=== PATIENT | male | born 1965 | race Two or more races ===

== ENCOUNTER 2024-12-05 09:21 | Emergency (ER) | payer MEDICAID, SELFPAY ==
[2024-12-05 09:45] VITALS: BP 144/89; PULSE 107; RESP 18; TEMP 37.4; O2SAT 98; BMI 21.2
--- NOTE | 2024-12-05 09:56 | EKG_ITS ---
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: : 1965 Requested By: Javier Bañuelos Order Number: [id number] Reading MD: Javier Bañuelos Measurements Intervals [place] Rate: 99 P: 61 MS: 162 QRS: -41 QRSD: 96 T: 73 QT: 340 QTc: 437 Interpretive Statements SINUS RHYTHM POSSIBLE LEFT ATRIAL ENLARGEMENT [-0.1mV P-WAVE IN V1/V2] LEFT AXIS DEVIATION [QRS AXIS < -30] POSSIBLE SEPTAL MYOCARDIAL INFARCTION , OF INDETERMINATE AGE [30 ms Q WAVE IN V1/V2] Compared to ECG 10/10/2019 16:35:24 Left-axis deviation now present Myocardial infarct finding now present ST (T wave) deviation no longer present /store/S0/[id number]/ecg/[id number].pdf
--- NOTE | 2024-12-05 09:56 | XR_ITS ---
Examination: PA chest single view FINDINGS: Upright PA chest single view Exam date and time: December 05, 2024 at 10:15 AM Comparison December 26, 2022 INDICATIONS: Shortness of breath coughing beginning 6 months ago FINDINGS: Stable scarring left upper lobe Normal heart size Stable scarring right midlung No interval pneumonia or pulmonary edema Prominent osteopenia IMPRESSION: No interval pneumonia or pulmonary edema
--- NOTE | 2024-12-05 10:04 | EDNOTE_ITS ---
ED General RME/HPI General Chief complaint: General Adult/Misc Complain Stated complaint: SWEATING BEHIND EARS AND NECK/VALLEY FEVER Arrival date/time: 12/05/24 09:21 RME / HPI RME / HPI narrative: This patient has past medical history of hypertension, polysubstance abuse, history of GERD, history of uncontrolled diabetes type 2 on insulin, history of valley fever, right BKA post right foot osteomyelitis with peripheral vascular disease was taking Plavix and clopidogrel follows with Dr. Fowler Presented to the ER with worsening fever, night sweats, chronic cough, difficulty/trouble breathing, epigastric pain associated with nausea x 3 days ago. Patient reported that he was diagnosed with valley fever 3 years ago and was taking fluconazole however his symptoms have not been improving and he has been having worsening sinus symptoms from last 3 days which brought him to the ER. He also reported that he had right below-knee amputation with prosthesis after he was admitted in the hospital in 2022 for right leg osteomyelitis due to uncontrolled type 2 diabetes. He reported to have fever spikes however did not record his temperature at home also has night sweats. He received COVID and flu vaccine in the past. He is also complaining of dysuria and burning sensation during urination. He also have chronic low back pain and takes gabapentin and celecoxib daily. He also have mild shortness of breath however saturating well. His blood sugars are usually around 280s?300s in the morning based on freestyle malathi 2 readings. He also has productive phlegm black in color. His chest hurts when he breathes faster reports to have trouble sleeping at night. He had 2 episodes of vomiting consisting of food particles without any blood. He is passing normal bowel movements. Patient was taking cilostazol and clopidogrel for peripheral occlusive vascular disease however is not taking that medications anymore. Vitals revealed blood pressure 144/89, pulse 107, respiratory rate 18. Temperature 99.4. He was saturating well on room air. EKG showed sinus rhythm with QTc 437. Left axis deviation. Peaked T waves in V3, V4 and V5. Left ventricular hypertrophy. No acute ST-T changes. ordered viscous lidocaine x 1, Pepcid x 1 and Tylenol x 1. Basic labs were ordered in addition to chest x-ray, ABGs, lactic acid, ESR and CRP along with blood cultures and sputum culture. Bedside COVID and flu antigen. PMH: As above PSH: Appendectomy, amputation of right leg post right leg osteomyelitis SH: Used to smoke tobacco quit smoking tobacco 20 years ago. Smokes marijuana occasionally. Denies drinking alcohol. Denies using recreational drugs. Allergies: NKDA Home medications: Insulin Lantus 15 units, regular insulin 5 units as needed, gabapentin 300 mg at night, celecoxib as needed for pain, pantoprazole 40 mg o nce daily, fluconazole 200 mg twice daily Vitals revealed blood pressure 144/89, pulse 107, respiratory rate 18. Temperature 99.4. He was saturating well on room air. EKG showed sinus rhythm with QTc 437. Left axis deviation. Peaked T waves in V3, V4 and V5. Left ventricular hypertrophy. No acute ST-T changes. ordered viscous lidocaine x 1, Pepcid x 1 and Tylenol x 1. Basic labs were ordered in addition to chest x-ray, ABGs, lactic acid, ESR and CRP along with blood cultures and sputum culture. Bedside COVID and flu antigen. 1310 although medications were ordered for the patient however patient eloped and did not receive any medications. Before, he left patient was explained regarding his condition and informed that he does not have infection currently and needs insulin therapy for his elevated blood sugars. He was contacted via phone call again and informed that if he wants to take medications he can always come back to the ER however he said that nobody is available to take him to the hospital and he already feels well therefore he was informed to check his blood sugars which were around 128 mg/dL as he gave himself insulin. He was advised to follow-up with his PCP and continue his medication as prescribed. DC instructions Your blood sugars are uncontrolled and you are recommended to follow-up with your PCP for better insulin regimen Continue taking your insulin as directed by your PCP Take Pepcid instead of Protonix due to WILLIAM and take Reglan as needed for nausea and vomiting Avoid taking NSAIDs including celecoxib as they affect your kidney functions Continue taking gabapentin for your neuropathy pain Infection was ruled out as you were not found to have any pneumonia on chest x- ray In case of emergency, call 911 or come back to the ED Advised to follow-up with your PCP as outpatient within a week complaint: Fever, cough with phlegm, trouble breathing, night sweats Onset (ago): week(s) (1) Location: chest and abdomen Radiation: abdomen Severity: moderate Severity scale (1-10): 9 Quality: aching and constant Consistency: constant Relieving factors: medication (Celecoxib and gabapentin) Exacerbating factors: none Associated symptoms: chest pain, cough, fever/chills, headaches, loss of appetite, nausea/vomiting, shortness of breath and weakness Related Data Previous Rx's ?Medication ?Instructions ?Recorded insulin lispro 100 unit/mL 1 sliding scale dose subcut 12/27/22 subcutaneous half-unit pen USEASDIRECTD #5 mL (Humalog Jose Raul KwikPen (U-100)) cilostazol 100 mg tablet 100 mg PO BID #60 tabs 04/29 clopidogrel 75 mg tablet (Plavix) 75 mg PO QDAY #30 ta bs 04/29/23 doxycycline monohydrate 100 mg 100 mg PO BID #70 tabs 04/29/23 tablet insulin glargine 100 unit/mL (3 20 unit (0.2 mL) subcu t QAM #15 mL 04/29/23 mL) subcutaneous pen (Basaglar KwikPen U-100 Insulin) lisinopril 10 mg tablet 10 mg PO QDAY #30 tabs 04/29 sennosides 8.6 mg tablet (senna) 8.6 mg PO QDAY PRN co nstipation 04/29/23 #30 tabs famotidine 20 mg tablet (Pepcid) 20 mg PO QDAY #60 tab s 12/05/24 metoclopramide HCl 5 mg tablet 5 mg PO QDAY PRN nausea and 12/05/24 (Reglan) vomiting #30 tabs Allergies Allergy/AdvReac Type Severity Reaction Status Date / Time No Known Allergies Allergy Verified 12/05/24 09:27 Review of Systems Review of Systems Systems Reviewed: All systems reviewed, normal except as documented Past Medical History Past Medical History NEUROLOGIC: Negative Neurological Disorders or Seizures CARDIAC: Positive Cardiac Disorders and Angina; Negative Congestive Heart Failure RESPIRATORY: Negative Chronic Obstructive Pulmonary Disease (COPD) or Asthma GASTROINTESTINAL: Positive Gastrointestinal Disorders and Gastroesophageal Reflux Disease GENITOURINARY: Positive Renal Disease MUSCULOSKELETAL: Negative Musculoskeletal Disorders ENT: Positive Ear Infection ENDOCRINE: Positive Endocrine Disorders and Diabetes Mellitus Type 1; Negative Diabetes Mellitus Type 2 HEMATOLOGIC: Negative Sickle Cell Disease PSYCHO/SOCIAL: Negative Depression or Anxiety OTHER HISTORY: Positive Blood Transfusions; Negative Blood Transfusion Reaction, Anesthesia Reactions, Organ Transplant, MRSA, VRSA, Chicken Pox or Clostridium Difficile Family History FAMILY HISTORY: Positive Family Cardiac Disorders Surgical History SURGICAL: Positive Abdominal Surgery; Negative Endocrine Surgery, Ear Surgery, Nephrectomy, Joint Replacement, Neurologic Surgery, Vasectomy or Organ Transplant Social History SMOKING STATUS: Never smoker SECOND HAND EXPOSURE: No SUBSTANCE USE: does not use ED Exam Narrative Physical exam: GENERAL APPEARANCE: Patient is Stateless-speaking AO x 3, generally well-appearing male in mild distress due to abdominal pain. HEENT: NC, AT. Dry mucous membranes. EOMI, clear conjunctiva, oropharynx clear. NECK: Supple without lymphadenopathy. No stiffness or restricted ROM. HEART: Sinus tachycardia with regular rhythm, normal S1/S2, no m/r/g LUNGS: CTAB, moving air well. No crackles or wheezes are heard. ABDOMEN: Soft, epigastric tenderness and bilateral flank pain, nondistended wit h good bowel sounds heard. BACK: No CVAT, no obvious deformity. EXTREMITIES: Right BKA with prosthesis NEUROLOGICAL: Grossly nonfocal. Alert and oriented, right BKA. CN not formally tested but appear grossly intact. Skin: Warm and dry without any rash. Pscyh: Appropriate mood and affect Course Course Course Narrative: This patient has past medical history of hypertension, polysubstance abuse, history of GERD, history of uncontrolled diabetes type 2 on insulin, history of valley fever, right BKA post right foot osteomyelitis with peripheral vascular disease was taking Plavix and clopidogrel follows with Dr. Fowler Presented to the ER with worsening fever, night sweats, chronic cough, difficulty/trouble breathing, epigastric pain associated with nausea x 3 days ago. Patient reported that he was diagnosed with valley fever 3 years ago and was taking fluconazole however his symptoms have not been improving and he has been having worsening sinus symptoms from last 3 days which brought him to the ER. 10:25 Vitals revealed blood pressure 144/89, pulse 107, respiratory rate 18. Temperature 99.4. He was saturating well on room air. EKG showed sinus rhythm with QTc 437. Left axis deviation. Peaked T waves in V3, V4 and V5. Left ventricular hypertrophy. No acute ST-T changes. ordered viscous lidocaine x 1, Pepcid x 1 and Tylenol x 1. Basic labs were ordered in addition to chest x-ray, ABGs, lactic acid, ESR and CRP along with blood cultures and sputum culture. Bedside COVID and flu. 11:12 CBC showed white count 6.5, hemoglobin 11.1. Platelet count 224. lactic acid 1.5, CRP 0.6, BHB 0.5, procalcitonin 0.06. Chemistry panel showed pseudohyponatremia sodium 134, potassium 4.0, CL 102. Kidney function showed WILLIAM with BUN 59 creatinine 1.5 GFR 54 baseline creatinine 1.2 from 2022. Blood glucose 415. Lactic acid 1.5. Magnesium 1.5. Mildly elevated ALP 153. we orde red insulin lispro 10 units subcut x 1, and mag 2 g x 1 in addition to 1 L bolus of LR. Chest x-ray was negative. 11:33 patient was informed that he was found to have mild WILLIAM and that could be most likely due to uncontrolled blood sugar and use of NSAIDs selective Conrad 2 inhibitor celecoxib and likely decreased p.o. intake. He was also informed that he has to follow-up with his primary care physician for insulin regimen and should have a good diabetic control along with diet and exercise. He was given educational material for diabetic diet. He was also informed that his infective markers are all negative and does not meet admission criteria and would need to follow his primary care and ID specialist as outpatient. We will reevaluate his blood sugars once he receives insulin lispro 10 units subcu x 1 after 30 to 40 minutes. Urinalysis only showed glucosuria and proteinuria with no infection. U tox was positive for marijuana. 13:51 Patient is not in lobby. Called twice. 14:10 although medications were ordered for the patient however patient eloped and did not receive any medications. Before, he left patient was explained regarding his condition and informed that he does not have infection currently and needs insulin therapy for his elevated blood sugars. He was contacted via phone call again and informed that if he wants to take medications he can always come back to the ER however he said that nobody is available to take him to the hospital and he already feels well therefore he was informed to check his blood sugars which were around 128 mg/dL as he gave himself insulin. Encouraged on oral hydration. He was advised to follow-up with his PCP and continue his medication as prescribed. DC instructions Your blood sugars are uncontrolled and you are recommended to follow-up with your PCP for better insulin regimen Continue taking your insulin as directed by your PCP Take Pepcid instead of Protonix due to WILLIAM and take Reglan as needed for nausea and vomiting Avoid taking NSAIDs including celecoxib as they affect your kidney functions Continue taking gabapentin for your neuropathy pain Infection was ruled out as you were not found to have any pneumonia on chest x- ray In case of emergency, call 911 or come back to the ED Advised to follow-up with your PCP as outpatient within a week Quality Measures none Orders Category Date Time Status Bedside Blood Glucose NOW Care 12/05/24 09:56 Active Bedside COVID-19 Antigen Test NOW Care 12/05/24 09:56 Active Bedside Influenza A&B Antigen Test NOW Care 12/05/24 09:58 Completed EKG (ED ONLY) *Do not use* NOW Care 12/05/24 09:58 Completed Miscellaneous Nursing Order NOW Care 12/05/24 11:16 Active CXRP [XR chest 1V portable] Stat Exams 12/05/24 09:56 Completed EKG (ED Only) Stat Exams 12/05/24 09:56 Draft A1C [Glycohemoglobin w (eAG)] Routine Lab 12/05/24 10:15 Completed ABG [Arterial Blood Gas] Stat Lab 12/05/24 09:58 Ordered Beta Hydroxybutyrate Stat Lab 12/05/24 10:18 Completed Blood Culture (Lab) Stat Lab 12/05/24 10:18 Received CBC Stat Lab 12/05/24 10:18 Completed CMP [Comprehensive Metabolic Panel] Stat Lab 12/05/24 10:18 Completed CRP [C-Reactive Protein] Stat Lab 12/05/24 10:18 Completed Drug Screen,Urine Stat Lab 12/05/24 10:43 Completed ESR [Sed Rate (ESR)] Stat Lab 12/05/24 10:18 Completed Lactate (Lactic Acid) Stat Lab 12/05/24 10:18 Completed Mag [Magnesium] Stat Lab 12/05/24 10:18 Completed Phosphorous Stat Lab 12/05/24 10:18 Completed Procalcitonin Stat Lab 12/05/24 10:18 Completed Sputum Culture and Gram Stain Stat Lab 12/05/24 09:59 Ordered Urinalysis Stat Lab 12/05/24 10:43 Completed Urine Culture Stat Lab 12/05/24 10:43 Received Acetaminophen Tab [Tylenol Tab] Med 12/05/24 09:56 Discontinued 650 mg PO X1 ONE Famotidine [Pepcid] Med 12/05/24 09:56 Discontinued 20 mg PO X1 ONE INSULIN LISPRO (AdmeLOG) [HumaLOG] Med 12/05/24 11:23 Discontinued 10 unit SC X1 ONE Lidocaine 2% Viscous [Xylocaine 2% Viscous] Med 12/05/24 09:56 Discontinued 15 ml PO X1 ONE Magnesium Sulfate 2 GM Ivpb [Magnesium Sulfate Ivpb] Med 12/05/24 11:23 Discontinued 2 gm in 50 ml IV X1 Ringers Lactated 1000 ml [Lactated Ringers] 1,000 ml Med 12/05/24 11:23 Discontinued IV 999 mls/hr Sodium Chloride Rt Bethanie 10% [NS Rt Bethanie 10%] Med 12/05/24 09:56 Discontinued 5 ml INH X1 ONE Sputum Induction PRN RT 12/05/24 10:00 Ordered Vital Signs Vital signs: Vital Signs Temperature 99.4 F 12/05/24 09:45 Pulse Rate 107 H 12/05/24 09:45 Respiratory Rate 18 12/05/24 09:45 Blood Pressure 144/89 H 12/05/24 09:45 Pulse Oximetry (%) 98 12/05/24 09:45 Oxygen Delivery Method Room Air 12/05/24 09:45 Discharge Plan Plan Patient Disposition: HOME (Self Care) Prescriptions/Referrals Prescriptions/Med Rec: New famotidine [Pepcid] 20 mg tablet 20 mg PO QDAY Qty: 60 0RF metoclopramide HCl [Reglan] 5 mg tablet 5 mg PO QDAY PRN (Reason: nausea and vomiting) Qty: 30 0RF No Action insulin lispro [Humalog Jose Raul KwikPen U-100] 100 unit/mL insulin pen, half- unit 1 sliding scale dose subcut USEASDIRECTD Qty: 5 2RF cilostazol 100 mg tablet 100 mg PO BID Qty: 60 5RF doxycycline monohydrate 100 mg tablet 100 mg PO BID Qty: 70 0RF lisinopril 10 mg tablet 10 mg PO QDAY Qty: 30 5RF clopidogrel [Plavix] 75 mg tablet 75 mg PO QDAY Qty: 30 5RF insulin glargine [Basaglar KwikPen U-100 Insulin] 100 unit/mL (3 mL) insulin pen 20 unit subcut QAM Qty: 15 5RF sennosides [senna] 8.6 mg tablet 8.6 mg PO QDAY PRN (Reason: constipation) Qty: 30 1RF Problem List Clinical Impression: Cough, Chronic night sweats, Intractable abdominal pain, Diabetes mellitus with hyperglycemia Patient/Caregiver Discharge Instructions Education Materials: Diabetes and Heart Disease, Healthy Meals for Diabetes, Understanding Carbohydrates, Diabetes: Inspecting Your Feet, Diabetes and Kidney Disease, Diabetes Carbs Fats Protein, Insulin Injection Steps, Diabetes and High Blood Pressure Additional Instructions: Infection was ruled out as you were not found to have any pneumonia on chest x- ray Your blood sugars are uncontrolled and you are recommended to follow-up with your PCP for better insulin regimen Continue taking your insulin as directed by your PCP Encouraged on oral hydration Take Pepcid instead of Protonix due to WILLIAM and take Reglan as needed for nausea and vomiting Avoid taking NSAIDs including celecoxib as they affect your kidney functions Continue taking gabapentin for your neuropathy pain In case of emergency, call 911 or come back to the ED Advised to follow-up with your PCP as outpatient within a week Print Language: Stateless Stand Alone Forms: Thu Award Info., Patient Portal Info Letter MDM Narrative MDM hospital course (for use when minimal MDM required): This patient has past medical history of hypertension, polysubstance abuse, history of GERD, history of uncontrolled diabetes type 2 on insulin, history of valley fever, right BKA post right foot osteomyelitis with peripheral vascular disease was taking Plavix and clopidogrel follows with Dr. Fowler Presented to the ER with worsening fever, night sweats, chronic cough, difficulty/trouble breathing, epigastric pain associated with nausea x 3 days ago. Patient reported that he was diagnosed with valley fever 3 years ago and was taking fluconazole however his symptoms have not been improving and he has been having worsening sinus symptoms from last 3 days which brought him to the ER. 10:25 AM Vitals revealed blood pressure 144/89, pulse 107, respiratory rate 18. Temperature 99.4. He was saturating well on room air. EKG showed sinus rhythm with QTc 437. Left axis deviation. Peaked T waves in V3, V4 and V5. Left ventricular hypertrophy. No acute ST-T changes. ordered viscous lidocaine x 1, Pepcid x 1 and Tylenol x 1. Basic labs were ordered in addition to chest x-ray, ABGs, lactic acid, ESR and CRP along with blood cultures and sputum culture. Bedside COVID and flu. 11:12 CBC showed white count 6.5, hemoglobin 11.1. Platelet count 224. lactic acid 1.5, CRP 0.6, BHB 0.5, procalcitonin 0.06. Chemistry panel showed pseudohyponatremia sodium 134, potassium 4.0, CL 102. Kidney function showed WILLIAM with BUN 59 creatinine 1.5 GFR 54 baseline creatinine 1.2 from 2022. Blood glucose 415. Lactic acid 1.5. Magnesium 1.5. Mildly elevated ALP 153. we ordered insulin lispro 10 units subcut x 1, and mag 2 g x 1 in addition to 1 L bolus of LR. 11:33 patient was informed that he was found to have mild WILLIAM and that could be most likely due to uncontrolled blood sugar and use of NSAIDs selective Conrad 2 inhibitor celecoxib and likely decreased p.o. intake. He was also informed that he has to follow-up with his primary care physician for insulin regimen and should have a good diabetic control along with diet and exercise. He was given educational material for diabetic diet. He was also informed that his infective markers are all negative and does not meet admission criteria and would need to follow his primary care and ID specialist as outpatient. We will reevaluate his blood sugars once he receives insulin lispro 10 units subcu x 1 after 30 to 40 minutes. Urinalysis only showed glucosuria and proteinuria with no infectio n. U tox was positive for marijuana. 1410 although medications were ordered for the patient however patient eloped and did not receive any medications. Before, he left patient was explained regarding his condition and informed that he does not have infection currently and needs insulin therapy for his elevated blood sugars. He was contacted via phone call again and informed that if he wants to take medications he can always come back to the ER however he said that nobody is available to take him to the hospital and he already feels well therefore he was informed to check his blood sugars which were around 128 mg/dL as he gave himself insulin. Encouraged on oral hydration. He was advised to follow-up with his PCP and continue his medication as prescribed. DC instructions Your blood sugars are uncontrolled and you are recommended to follow-up with your PCP for better insulin regimen Continue taking your insulin as directed by your PCP Take Pepcid instead of Protonix due to WILLIAM and take Reglan as needed for nausea and vomiting Avoid taking NSAIDs including celecoxib as they affect your kidney functions Continue taking gabapentin for your neuropathy pain Infection was ruled out as you were not found to have any pneumonia on chest x- ray In case of emergency, call 911 or come back to the ED Advised to follow-up with your PCP as outpatient within a week Medication Administration(s) Medication Administration History Discontinued Medications Acetaminophen (Acetaminophen 325 Mg Tablet) 650 mg PO X1 ONE Stop: 12/05/24 09:57 Famotidine (Famotidine 20 Mg Tablet) 20 mg PO X1 ONE Stop: 12/05/24 09:57 Lactated Ringer's (Lactated Ringers) 1,000 mls @ 999 mls/hr IV .Q1H1M ONE Stop: 12/05/24 12:23 Magnesium Sulfate (Magnesium Sulfate Ivpb) 2 gm in 50 mls @ 25 mls/hr IV X1 ONE Stop: 12/05/24 13:22 Insulin Human Lispro (Insulin Lispro (Admelog) 1 Unit/0.01 Ml Unit) 10 unit SC X1 ONE Stop: 12/05/24 11:24 Lidocaine HCl (Lidocaine Viscous 2% 15 Ml Udc) 15 ml PO X1 ONE Stop: 12/05/24 09:57 Sodium Chloride (Sodium Chloride Rt 10% 15 Ml Nebu) 5 ml INH X1 ONE Stop: 12/05/24 09:57
[2024-12-05 10:39] LABS: Lactate (Lactic Acid) 1.5 mMol/L (0.4-2.0)
[2024-12-05 10:41] LABS: Basophils % (Auto) 0 % (0-2.5); Eosinophils % (Auto) 0 % (0-10); Hematocrit 30.6 % (41.0-53.0); Hemoglobin 11.1 g/dL (13.5-16.0); Immature Granulocytes % (Auto) 0 % (0-0); Immature Granulocytes Auto 0.01 Thou/mm3 (0.00-0.00); Lymphocytes # (Auto) 0.4 Thou/mm3 (1.0-4.8); Lymphocytes % (Auto) 6 % (10-50); Mean Corpuscular HGB Conc 36.3 g/dl (31.0-37.0); Mean Corpuscular Hemoglobin 33.1 pg (25.0-35.0); Mean Corpuscular Volume 91 fL (80-100); Monocytes # (Auto) 0.4 Thou/mm3 (0.0-0.8); Monocytes % (Auto) 6 % (0-12); Neutrophils # (Auto) 5.6 Thou/mm3 (1.8-7.7); Neutrophils % (Auto) 87 % (37-80); Nucleated Red Blood Cell % 0 /100 WBC (0); Platelet Count 224 Thou/mm3 (140-440); RDW Standard Deviation 45.6 fL (35.1-43.9); Red Blood Count 3.35 Miln/mm3 (4.50-5.90); White Blood Count 6.5 Thou/mm3 (3.8-10.6)
[2024-12-05 10:43] LABS: Beta Hydroxybutyrate 0.5 mmol/L (<0.6)
[2024-12-05 11:04] LABS: Alanine Aminotransferase 10 U/L (10-49); Albumin, Serum 4.4 gm/dL (3.5-5.0); Albumin/Globulin Ratio 1.5 (1.2-2.2); Alkaline Phosphatase 153 U/L (46-116); Anion Gap 8 (7-16); Aspartate Amino Transferase 14 U/L (0-34); BUN/Creatinine Ratio 10 Ratio (12-20); Bilirubin,Total 0.8 mg/dL (0.3-1.2); Blood Urea Nitrogen 15 mg/dL (9-23); Calcium 8.8 mg/dL (8.3-10.6); Calcium (Corrected) 8.8 mg/dL (8.5-10.1); Carbon Dioxide 24.2 mMol/L (20.0-31.0); Chloride 102 mMol/L (98-107); Creatinine (Component) 1.5 mg/dL (0.6-1.3); Estimated Creatinine Clearance 40.4 mL/min (>60); Magnesium 1.5 mg/dL (1.6-2.6); Osmolality,Calculated 287 (275-295); Phosphorous 2.9 mg/dL (2.4-5.1); Sodium 134 mMol/L (136-145); Total Protein 7.4 gm/dL (5.7-8.2); eGFR 54 See Note
[2024-12-05 11:10] LABS: C-Reactive Protein 0.6 mg/dL (0.0-0.9); Procalcitonin 0.06 ng/ml (0.0-0.49)
[2024-12-05 11:22] LABS: Glucose 415 mg/dL (74-106)
[2024-12-05 11:33] LABS: Collection Type, Urine Clean Catch
[2024-12-05 11:44] LABS: Sed Rate (ESR) 53 mm/hr (0-20)
[2024-12-05 11:57] LABS: Bilirubin,Urine Negative (Negative); Blood,Urine Negative (Negative); Clarity,Urine Clear (Clear/Hazy); Color,Urine Yellow (Lt Yel-Yel); Glucose, Urine 4+ (Negative); Hyaline Casts,Urine < 1 /hpf (0-1); Ketones,Urine Trace (Negative); Leukocyte Esterase,Urine Negative (Negative); Nitrite,Urine Negative (Negative); Protein,Urine 1+ (Neg - Trace); RBC,Urine 2 /hpf (0-3); Squamous Epithelial Cell,Urine 1 /hpf (0-5); Urobilinogen,Urine Negative mg/dL (0.0-1.0); WBC,Urine 2 /hpf (0-5)
[2024-12-05 12:03] LABS: Amphetamine/Methamp Scrn,U Negative (Negative); Barbiturate Screen,Urine Negative (Negative); Benzodiazepines Screen,Urine Negative (Negative); Benzoylecgonine Screen, Ur Negative (Negative); Fentanyl Screen,Urine Negative (Negative); Opiate Screen,Urine Negative (Negative); THC Screen,Urine Positive (Negative)
[2024-12-05 12:04] LABS: Glucose Estimated Average 258 mg/dL (80-131); Hemoglobin A1C 10.6 % Hgb (4.8-6.0)
--- NOTE | 2024-12-05 14:03 | PC.NURSE ---
CALLED PT AT THIS TIME, NA X1
== END 2024-12-05 14:55 | disposition left against medical advice (07) ==
LOC: SERX 11:47
PROVIDERS: Student in an Organized Health Care Education/Training Program; Emergency Provider Family Medicine; PCP Nurse Practitioner Family
DX: E10.65 Type 1 diabetes mellitus with hyperglycemia (principal); R61 Generalized hyperhidrosis; R05.9 Cough, unspecified; R10.13 Epigastric pain; R06.02 Shortness of breath; R94.31 Abnormal electrocardiogram [ECG] [EKG]; I10 Essential (primary) hypertension; Z79.4 Long term (current) use of insulin; Z87.891 Personal history of nicotine dependence; E10.40 Type 1 diabetes mellitus with diabetic neuropathy, unspecified; Z53.29 Procedure and treatment not carried out because of patient's decision for other reasons
CPT/HCPCS: 36415; 36600; 71045; 80053; 80307; 81001; 82010; 82803; 83036; 83605; 83735; 84100; 84145; 85025; 85652; 86140; 87040; 87086; 87205; 87400; 87811; 93005; 99283

== ENCOUNTER 2024-12-31 21:25 | Emergency (ER) | payer MEDICAID, SELFPAY ==
--- NOTE | 2024-12-31 22:20 | PC.NURSE ---
no answer in lobby when called for vital signs
--- NOTE | 2024-12-31 22:26 | PD.EDADDENDU ---
Emergency Room Addendum Addendum Narrative: I was told the patient eloped. Dilan Teixeira MD
--- NOTE | 2024-12-31 22:30 | PC.NURSE ---
no answer in lobby when called for vital signs
--- NOTE | 2024-12-31 22:40 | PC.NURSE ---
no answer in lobby when called for vital signs
== END 2025-01-01 00:13 | disposition left against medical advice (07) ==
LOC: SERX 22:17
PROVIDERS: Emergency Provider Emergency Medicine
DX: Z53.21 Procedure and treatment not carried out due to patient leaving prior to being seen by health care provider (principal)